=== PATIENT | male | born 1950 | race Caucasian/White ===

== ENCOUNTER 2020-06-28 07:01 | Day surgery (SDC) | payer MEDICARE ==
[2020-06-27 09:43] LABS: EOSINOPHILS # (AUTO) 0.3 X10'3 (0-0.9); HEMOGLOBIN 14.4 g/dl (14.0-17.9); MONOCYTES # (AUTO) 0.4 X10'3 (0-0.9)
[2020-06-27 09:45] LABS: BASOPHILS % (AUTO) 0.6 % (0-1); HEMATOCRIT 43.3 % (42.0-52.0); LYMPHOCYTES # (AUTO) 1.9 X10'3 (1.1-4.8); LYMPHOCYTES % (AUTO) 32.1 % (21-51); MEAN CORPUSCULAR HEMOGLOBIN 30.6 PG (27.0-31.0); MEAN CORPUSCULAR HGB CONC 33.2 g/dL (33.0-36.5); MEAN CORPUSCULAR VOLUME 92.4 FL (78-98); MONOCYTES % (AUTO) 7.6 % (2-12); NEUTROPHILS # (AUTO) 3.1 X10'3 (1.8-7.7); NEUTROPHILS % (AUTO) 53.7 % (42-75); PLATELET COUNT 228 X10'3 (140-440); RED BLOOD COUNT 4.69 X10'6 (4.70-6.10); RED CELL DISTRIBUTION WIDTH 14.5 % (11.5-14.5); WHITE BLOOD COUNT 5.8 X10'3 (4.5-11.0)
[2020-06-27 09:58] LABS: PARTIAL THROMBOPLASTIN TIME 26 SECONDS (22-32)
[2020-06-27 10:00] LABS: ALBUMIN 4.4 G/DL (3.4-5.0); ANION GAP 4 (8-16); BLOOD UREA NITROGEN 24 MG/DL (7-18); BUN/CREATININE RATIO 23.8 (5.4-32.0); CALCIUM 9.7 MG/DL (8.5-10.1); CHLORIDE 104 MMOL/L (99-107); CREATININE 1.01 MG/DL (0.60-1.10); GLUCOSE 109 MG/DL (70-104); POTASSIUM 4.1 MMOL/L (3.5-5.1); SODIUM 139 MMOL/L (135-145); eGFR 73 ML/MIN
[~2020-06-28] VITALS: Ht 180.3 cm; Wt 88.2 kg
[2020-06-28] VITALS (18 sets, daily range): BP systolic 103–160; BP diastolic 59–91
[2020-06-28] MEDS ORDERED: acetylcysteine 200 MG/ml 4ml vial PO SCH (07:21)
[2020-06-28] MEDS ORDERED: normal saline 1,000 ML IV SCH ×2 (07:25→13:45)
[2020-06-28] MEDS ORDERED: diphenhydrAMINE 25mg capsule PO PRN (07:25)
[2020-06-28] MEDS ORDERED: FENT1PAT7 TOP (07:46)
[2020-06-28] MEDS ORDERED: ATEN50TA2 PO (07:46)
[2020-06-28] MEDS ORDERED: FEXO180T94 PO (07:46)
[2020-06-28] MEDS ORDERED: FENO160T30 PO (07:46)
[2020-06-28] MEDS ORDERED: LISI10TA27 PO (07:46)
[2020-06-28] MEDS ORDERED: ASPI-1071 PO (07:46)
[2020-06-28] MEDS ORDERED: FLUT16SP11 BOTHNARES (07:46)
[2020-06-28] MEDS ORDERED: ALLO100T PO (07:46)
[2020-06-28] MEDS ORDERED: NITR0.4T48 SL (07:46)
[2020-06-28] MEDS ORDERED: ROSU20TA31 PO (07:46)
[2020-06-28] MEDS ORDERED: ESZO3TAB44 PO (07:46)
[2020-06-28] MEDS ORDERED: ESZO1TAB11 PO (07:46)
[2020-06-28] MEDS ORDERED: HYDR-3972 PO (07:46)
[2020-06-28] MEDS ORDERED: iohexol 350MG/ML 100ml bottle IV ONE ×4 (10:26→12:30)
[2020-06-28] MEDS ORDERED: midazolam 2 mg/2 ml injection ONE ×2 (10:26→12:04)
[2020-06-28] MEDS ORDERED: heparin 1,000unit/ml 10ml vial 10 ML ONE ×2 (10:26→12:47)
[2020-06-28] MEDS ORDERED: iohexol 350 MG/ML 50ML vial IV ONE (10:26)
[2020-06-28] MEDS ORDERED: LIDOcaine 1% (10mg/ml)w/preservative injection 20ml MDV ONE (10:26)
[2020-06-28] MEDS ORDERED: fentaNYL/PF 50MCG/1 ML 2ML syringe ONE (10:26)
[2020-06-28] MEDS ORDERED: nitroGLYCERIN-Tridil 50MG/D5W 250 ML IV ONE (10:26)
[2020-06-28] MEDS ORDERED: heparin 25,000 UNIT/250ml bag 250 ML IV ONE (11:29)
[2020-06-28] MEDS ORDERED: heparin 1,000 UNITS/NS 500ml 500 ML ONE (12:11)
[2020-06-28] MEDS ORDERED: clopidogrel 300mg tablet ONE (12:53)
[2020-06-28] MEDS ORDERED: heparin 25,000 UNIT/250ml bag 250 ML IV SCH (13:45)
[2020-06-28] MEDS ORDERED: cyclobenzaprine 10mg tablet PO PRN (14:20)
[2020-06-28] MEDS ORDERED: OXAZEpam 15mg capsule PO PRN (14:20)
[2020-06-28] MEDS ORDERED: HYDROcodone/acetaminophen 10/325mg tab PO PRN (14:20)
[2020-06-28] MEDS ORDERED: morphine 2 MG/ML inj. syringe IV PRN (14:20)
[2020-06-28] MEDS ORDERED: magnesium hydroxide 30ml (MOM) UD suspension PO PRN (14:20)
[2020-06-28] MEDS ORDERED: proCHLORperazine 10 MG/2 ml inj IV PRN (14:20)
--- NOTE | 2020-06-28 15:30 | NUR ---
Right groin sheath removed, pressure held for 15 minutes. No bleeding noted after pressure released. New dressing applied. CDI. Femstop applied as ordered. Pedal pulse palpable. Will continue to monitor.
--- NOTE | 2020-06-28 19:15 | NUR ---
Report given to Pratibha SHEN.
[2020-06-28] MEDS ORDERED: docusate sod 100mg capsule PO SCH (20:00)
[2020-06-29] MEDS ORDERED: clopidogrel 75mg tablet PO SCH (08:00)
== END 2020-06-28 20:40 | disposition home or self-care (01) ==
LOC: SSTAY O 07:01
PROVIDERS: ATTEND Internal Medicine Cardiovascular Disease
DX: I25.10 Atherosclerotic heart disease of native coronary artery without angina pectoris (principal); T82.855A Stenosis of coronary artery stent, initial encounter; I25.82 Chronic total occlusion of coronary artery; I10 Essential (primary) hypertension; E78.49 Other hyperlipidemia; I25.2 Old myocardial infarction; M19.90 Unspecified osteoarthritis, unspecified site; E66.3 Overweight; Z85.51 Personal history of malignant neoplasm of bladder; Z95.5 Presence of coronary angioplasty implant and graft; Z79.899 Other long term (current) drug therapy; Z90.49 Acquired absence of other specified parts of digestive tract; Z98.890 Other specified postprocedural states; Z87.891 Personal history of nicotine dependence; Y83.8 Other surgical procedures as the cause of abnormal reaction of the patient, or of later complication, without mention of misadventure at the time of the procedure; Y92.89 Other specified places as the place of occurrence of the external cause
CPT/HCPCS: 36415; 76937; 80048; 85025; 85347; 85610; 85730; 93005; 93459; 99152; 99153; C1725; C1751; C1769; C1874; C1894; C9604; J1644; J2001; J2250; J2270; J3010; J7030; Q0163; Q9967; A4620; A6258; J3490

== ENCOUNTER 2021-10-17 06:09 | Day surgery (SDC) | payer MEDICARE ==
[2021-10-16 13:12] LABS: BASOPHILS % (AUTO) 0.8 % (0-1); EOSINOPHILS # (AUTO) 0.4 X10'3 (0-0.9); EOSINOPHILS % (AUTO) 5.7 % (0-6); HEMOGLOBIN 14.2 g/dl (14.0-17.9); LYMPHOCYTES # (AUTO) 1.9 X10'3 (1.1-4.8); LYMPHOCYTES % (AUTO) 30.9 % (21-51); MEAN CORPUSCULAR HEMOGLOBIN 29.4 PG (27.0-31.0); MEAN CORPUSCULAR VOLUME 89.2 FL (78-98); MEAN PLATELET VOLUME 8.4 FL (7.4-10.4); MONOCYTES # (AUTO) 0.6 X10'3 (0-0.9); MONOCYTES % (AUTO) 8.8 % (2-12); NEUTROPHILS # (AUTO) 3.4 X10'3 (1.8-7.7); NEUTROPHILS % (AUTO) 53.8 % (42-75); PLATELET COUNT 242 X10'3 (140-440); RED BLOOD COUNT 4.82 X10'6 (4.70-6.10); WHITE BLOOD COUNT 6.2 X10'3 (4.5-11.0)
[2021-10-16 13:20] LABS: ALBUMIN 4.2 G/DL (3.4-5.0); BLOOD UREA NITROGEN 20 MG/DL (7-18); BUN/CREATININE RATIO 21.5 (5.4-32.0); CALCIUM 8.8 MG/DL (8.5-10.1); CHLORIDE 103 MMOL/L (99-107); CREATININE 0.93 MG/DL (0.60-1.10); GLUCOSE 94 MG/DL (70-104); SODIUM 139 MMOL/L (135-145); eGFR 80 ML/MIN
[2021-10-16 13:21] LABS: ANION GAP 7 (8-16); TOTAL CARBON DIOXIDE 29.4 MMOL/L (24-32)
[2021-10-16 13:24] LABS: APTT 28 SECONDS (22-32)
[2021-10-17] VITALS (13 sets, daily range): BP systolic 122–158; BP diastolic 71–89
[~2021-10-17] VITALS: Ht 180.3 cm; Wt 86.9 kg
[~2021-10-17 06:09] MED LIST: ALLO100T PO; ASPI-1071 PO; ATEN50TA2 PO; ESZO1TAB11 PO; ESZO3TAB44 PO; FENO160T30 PO; FENT1PAT7 TOP; FEXO180T94 PO; FLUT16SP11 BOTHNARES; HYDR-3972 PO; LISI10TA27 PO; NITR0.4T48 SL; ROSU20TA31 PO
[2021-10-17] MEDS ORDERED: diphenhydrAMINE 25mg capsule PO PRN (06:30)
[2021-10-17] MEDS ORDERED: normal saline 1,000 ML IV SCH (06:30)
[2021-10-17] MEDS ORDERED: LIDOcaine/PRILOcaine 5gm cream TP ONE (06:30)
[2021-10-17] MEDS ORDERED: acetylcysteine 200 MG/ml 4ml vial PO PRN (06:35)
[2021-10-17] MEDS ORDERED: CLOP75TA34 PO (06:43)
[2021-10-17] MEDS ORDERED: METO-411 PO (06:43)
[2021-10-17] MEDS ORDERED: FLO0.4C PO (06:43)
[2021-10-17] MEDS ORDERED: FEXO-271 PO (06:45)
[2021-10-17] MEDS ORDERED: UBID100C16 PO (06:45)
[2021-10-17] MEDS ORDERED: nitroGLYCERIN-Tridil 50MG/D5W 250 ML IV ONE (07:32)
[2021-10-17] MEDS ORDERED: midazolam 1 mg/ML 2ml injection ONE ×2 (07:33→09:09)
[2021-10-17] MEDS ORDERED: heparin 1,000unit/ml 10ml vial 10 ML ONE (07:33)
[2021-10-17] MEDS ORDERED: LIDOcaine 1% 30ml preserv. free vial ONE (07:33)
[2021-10-17] MEDS ORDERED: fentaNYL/PF 50MCG/1 ML 2ML syringe ONE (07:33)
[2021-10-17] MEDS ORDERED: iohexol 350MG/ML 100ml bottle IV ONE ×3 (07:33→09:44)
[2021-10-17] MEDS ORDERED: verapamil 2.5 mg/ml inj IV ONE (07:39)
[2021-10-17] MEDS ORDERED: heparin 25,000 UNIT/250ml bag 250 ML IV ONE (09:05)
[2021-10-17] MEDS ORDERED: clopidogrel 300mg tablet ONE (09:34)
[2021-10-17] MEDS ORDERED: ticagrelor 90mg tablet ONE (09:42)
[2021-10-17] MEDS ORDERED: HYDROcodone/acetaminophen 10/325mg tab PO PRN ×2 (10:40→12:45)
[2021-10-17] MEDS ORDERED: HYDROcodone/acetaminophen 5mg/325mg tablet PO PRN (10:40)
--- NOTE | 2021-10-17 12:28 | NUR ---
Contacted . Pt complaint of SOB. Pt states he has had this reaction when taking Brilinta. New orders given and faxed to pharmacy. Pt understands the Brilinta has been DC'd and the verbalized understanding to take Effient in replacement for Brilinta. Pt states he will admitting supervisor medication from pharmacy.
--- NOTE | 2021-10-17 13:30 | NUR ---
Pt eating lunch tray. Sitting up in bed. 250ml oral fluid intake. Pt has been up to the bathroom x3. Fluids infusing as ordered.
--- NOTE | 2021-10-17 15:20 | NUR ---
Educated patient extensively on necessity of taking Effient. Explained that medication needs to be picked up at pharmacy prior to discharge. Pt verbalized understanding. Pt reports concerns in continuing Effient due to risk of stroke. Pt states he will keep in contact with Dr. Flores. Pt verbalized understanding the importance of taking his new medication and the reason for taking the medication, "in order to keep the stent open". Will continue to monitor.
--- NOTE | 2021-10-17 17:30 | NUR ---
Pt's is at bedside with new prescriptions. Pt verbalized understanding of taking Effient daily. Pt states he will call Dr. Flores, "if I decided to not take it". Pt reported concerns of increased risk of stroke with taking new medication. States he has been taking Plavix successfully for "years". Re-educated patient on the importance of him to continue taking the medication and to call MD prior to stopping any medication.
== END 2021-10-17 18:14 | disposition home or self-care (01) ==
LOC: SSTAY O 06:09
PROVIDERS: ATTEND Internal Medicine Cardiovascular Disease
DX: R94.39 Abnormal result of other cardiovascular function study (principal); I25.810 Atherosclerosis of coronary artery bypass graft(s) without angina pectoris; I10 Essential (primary) hypertension; I25.2 Old myocardial infarction; E78.49 Other hyperlipidemia; E66.3 Overweight; Z68.26 Body mass index [BMI] 26.0-26.9, adult; M19.90 Unspecified osteoarthritis, unspecified site; Z85.51 Personal history of malignant neoplasm of bladder; Z95.5 Presence of coronary angioplasty implant and graft; Z90.49 Acquired absence of other specified parts of digestive tract; Z98.890 Other specified postprocedural states; Z87.891 Personal history of nicotine dependence; Z88.8 Allergy status to other drugs, medicaments and biological substances; Z79.899 Other long term (current) drug therapy; Z79.01 Long term (current) use of anticoagulants
CPT/HCPCS: 36415; 76937; 80048; 85025; 85347; 85610; 85730; 93005; 93459; 93567; 99152; 99153; A6258; C1725; C1751; C1769; C1874; C1894; C9604; J1644; J2250; J3010; J3490; J7030; Q0163; Q9967; A4615; A4620; A6402

== ENCOUNTER 2022-12-04 06:05 | Day surgery (SDC) | payer MEDICARE ==
[2022-12-03 08:59] LABS: BASOPHILS % (AUTO) 0.7 % (0-1); EOSINOPHILS # (AUTO) 0.3 X10'3 (0-0.9); EOSINOPHILS % (AUTO) 4.5 % (0-6); HEMATOCRIT 43.9 % (42.0-52.0); HEMOGLOBIN 14.5 g/dl (14.0-17.9); LYMPHOCYTES # (AUTO) 1.8 X10'3 (1.1-4.8); LYMPHOCYTES % (AUTO) 26.8 % (21-51); MEAN CORPUSCULAR HEMOGLOBIN 30.4 PG (27.0-31.0); MEAN CORPUSCULAR VOLUME 92.2 FL (78-98); MEAN PLATELET VOLUME 8.3 FL (7.4-10.4); MONOCYTES # (AUTO) 0.6 X10'3 (0-0.9); MONOCYTES % (AUTO) 8.7 % (2-12); NEUTROPHILS # (AUTO) 3.9 X10'3 (1.8-7.7); NEUTROPHILS % (AUTO) 59.3 % (42-75); PLATELET COUNT 222 X10'3 (140-440); RED BLOOD COUNT 4.76 X10'6 (4.70-6.10); RED CELL DISTRIBUTION WIDTH 14.6 % (11.5-14.5); WHITE BLOOD COUNT 6.6 X10'3 (4.5-11.0)
[2022-12-03 09:08] LABS: ALBUMIN 4.3 G/DL (3.4-5.0); ANION GAP 3 (8-16); BLOOD UREA NITROGEN 29 MG/DL (7-18); BUN/CREATININE RATIO 24.8 (10.0-20.0); CALCIUM 9.3 MG/DL (8.5-10.1); CHLORIDE 103 MMOL/L (99-107); CREATININE 1.17 MG/DL (0.60-1.10); GLUCOSE 111 MG/DL (70-104); POTASSIUM 4.2 MMOL/L (3.5-5.1); SODIUM 137 MMOL/L (135-145); TOTAL CARBON DIOXIDE 30.6 MMOL/L (24-32); eGFR 61 ML/MIN
[2022-12-03 09:10] LABS: APTT 28 SECONDS (22-32); INR 1.1 INR; PROTHROMBIN TIME 11.4 SECONDS (9.0-12.0)
[2022-12-04] VITALS (12 sets, daily range): BP systolic 95–127; BP diastolic 57–86; PULSE 57–67; RESP 12–18; TEMP 98.3; O2SAT 93–97
[~2022-12-04] VITALS: Ht 180.3 cm; Wt 85.9 kg
[~2022-12-04 06:05] MED LIST changes: +CLOP75TA34 PO; -ESZO3TAB44 PO; +FEXO-271 PO; +FLO0.4C PO; +METO-411 PO; -ROSU20TA31 PO; +ROSU20TA73 PO; +UBID100C16 PO
[2022-12-04] MEDS ORDERED: diphenhydrAMINE 25mg capsule PO PRN (06:20)
[2022-12-04] MEDS ORDERED: normal saline 1,000 ML IV SCH (06:20)
[2022-12-04] MEDS ORDERED: LORazepam 0.5 MG tablet PO PRN (06:20)
[2022-12-04] MEDS ORDERED: acetylcysteine 200 MG/ml 4ml vial PO PRN (06:20)
[2022-12-04] MEDS ORDERED: sodium bicarbonate 1meq/ml syr 150 ML in dextrose 5%-water 1,000 ML IV SCH (06:25)
[2022-12-04] MEDS ORDERED: LISI1TAB51 PO (06:42)
[2022-12-04] MEDS ORDERED: NITR1PAT68 TD (06:42)
[2022-12-04] MEDS ORDERED: ASPI81TA52 PO (06:42)
[2022-12-04] MEDS ORDERED: ESZO3TAB44 PO (06:42)
[2022-12-04] MEDS ORDERED: midazolam 1 mg/ML 2ml injection ONE ×2 (07:27→08:31)
[2022-12-04] MEDS ORDERED: nitroGLYCERIN-Tridil 50MG/D5W 250 ML IV ONE (07:27)
[2022-12-04] MEDS ORDERED: verapamil 2.5 mg/ml inj IV ONE (07:27)
[2022-12-04] MEDS ORDERED: LIDOcaine 1% 30ml preserv. free vial ONE (07:27)
[2022-12-04] MEDS ORDERED: heparin 1,000unit/ml 10ml vial 10 ML ONE (07:28)
[2022-12-04] MEDS ORDERED: iohexol 350MG/ML 100ml bottle IV ONE ×2 (07:28→09:07)
[2022-12-04] MEDS ORDERED: fentaNYL/PF 50MCG/1 ML 2ML syringe ONE (07:28)
[2022-12-04] MEDS ORDERED: heparin 1,000 UNITS/NS 500ml 500 ML ONE (08:53)
[2022-12-04] MEDS ORDERED: iohexol 350 MG/ML 50ML vial IV ONE (09:06)
[2022-12-04] MEDS ORDERED: pneumococcal 23-VAL P-sac vacc 25 mcg/0.5ml vial IMVAC ONE (10:00)
[2022-12-04] MEDS ORDERED: sodium bicarbonate (8.4%) inj. 150 MEQ in dextrose 5%-water 1,000 ML IV SCH (10:05)
[2022-12-04] MEDS ORDERED: HYDROcodone/acetaminophen 10/325mg tab PO PRN (10:05)
[2022-12-04] MEDS ORDERED: HYDROcodone/acetaminophen 5mg/325mg tablet PO PRN (10:05)
[2022-12-04] MEDS: morphine 2 MG/ML inj. syringe IV PRN ×2 (10:31→14:52)
== END 2022-12-04 15:50 | disposition home or self-care (01) ==
LOC: SSTAY O 06:05
PROVIDERS: ATTEND Internal Medicine Cardiovascular Disease
DX: T82.855A Stenosis of coronary artery stent, initial encounter (principal); I25.810 Atherosclerosis of coronary artery bypass graft(s) without angina pectoris; I10 Essential (primary) hypertension; I25.2 Old myocardial infarction; E66.3 Overweight; Z68.26 Body mass index [BMI] 26.0-26.9, adult; E78.5 Hyperlipidemia, unspecified; Z85.51 Personal history of malignant neoplasm of bladder; Z79.01 Long term (current) use of anticoagulants; Z79.899 Other long term (current) drug therapy; Z90.49 Acquired absence of other specified parts of digestive tract; Z98.890 Other specified postprocedural states; Z87.891 Personal history of nicotine dependence; Z72.89 Other problems related to lifestyle; Z88.8 Allergy status to other drugs, medicaments and biological substances; Z23 Encounter for immunization; Y84.0 Cardiac catheterization as the cause of abnormal reaction of the patient, or of later complication, without mention of misadventure at the time of the procedure; Y92.89 Other specified places as the place of occurrence of the external cause
CPT/HCPCS: 36415; 76937; 80048; 85025; 85610; 85730; 90732; 93005; 93459; 99152; 99153; G0009; J1644; J2250; J2270; J3010; J3490; J7030; J7070; Q0163; Q9967; A6258; A6449; C1725; C1751; C1769; C9607

== ENCOUNTER 2023-11-14 10:29 | Day surgery (SDC) | payer MEDICARE, OTHER ==
[2023-11-13 10:28] LABS: BASOPHILS # (AUTO) 0.1 X10'3 (0-0.2); BASOPHILS % (AUTO) 0.8 % (0-1); EOSINOPHILS # (AUTO) 0.2 X10'3 (0-0.9); EOSINOPHILS % (AUTO) 2.4 % (0-6); HEMATOCRIT 43.1 % (42.0-52.0); HEMOGLOBIN 14.2 g/dl (14.0-17.9); LYMPHOCYTES # (AUTO) 2.2 X10'3 (1.1-4.8); LYMPHOCYTES % (AUTO) 32.2 % (21-51); MEAN CORPUSCULAR HGB CONC 32.9 g/dL (33.0-36.5); MEAN CORPUSCULAR VOLUME 91.2 FL (78-98); MEAN PLATELET VOLUME 8.1 FL (7.4-10.4); MONOCYTES # (AUTO) 0.6 X10'3 (0-0.9); MONOCYTES % (AUTO) 9.4 % (2-12); NEUTROPHILS # (AUTO) 3.8 X10'3 (1.8-7.7); NEUTROPHILS % (AUTO) 55.2 % (42-75); PLATELET COUNT 411 X10'3 (140-440); RED BLOOD COUNT 4.73 X10'6 (4.70-6.10); RED CELL DISTRIBUTION WIDTH 15.2 % (11.5-14.5); WHITE BLOOD COUNT 6.9 X10'3 (4.5-11.0)
[2023-11-13 10:48] LABS: ALBUMIN 3.3 G/DL (3.4-5.0); ANION GAP 8 (8-16); BLOOD UREA NITROGEN 23 MG/DL (7-18); BUN/CREATININE RATIO 21.3 (10.0-20.0); CALCIUM 9.6 MG/DL (8.5-10.1); CHLORIDE 100 MMOL/L (99-107); CREATININE 1.08 MG/DL (0.60-1.10); GLUCOSE 101 MG/DL (70-104); POTASSIUM 4.4 MMOL/L (3.5-5.1); SODIUM 136 MMOL/L (135-145); TOTAL CARBON DIOXIDE 28.3 MMOL/L (24-32); eGFR 67 ML/MIN
[~2023-11-14] VITALS: Ht 180.3 cm; Wt 81.0 kg
[2023-11-14] VITALS (12 sets, daily range): BP systolic 92–119; BP diastolic 56–85; PULSE 58–79; RESP 14–20; TEMP 98.6; O2SAT 94–98
[~2023-11-14 10:29] MED LIST changes: -ASPI-1071 PO; +ASPI81TA52 PO; -ATEN50TA2 PO; -ESZO1TAB11 PO; +ESZO3TAB44 PO; -FEXO180T94 PO; -LISI10TA27 PO; +LISI1TAB51 PO; +NITR1PAT68 TD
[2023-11-14] MEDS ORDERED: IPRA5POW (11:06)
[2023-11-14] MEDS ORDERED: MULT-1085 PO (11:06)
[2023-11-14] MEDS ORDERED: heparin 1,000unit/ml 10ml vial 10 ML ONE (11:30)
[2023-11-14] MEDS ORDERED: nitroGLYCERIN 500mcg/5mL D5W 5 ML IV ONE (11:30)
[2023-11-14] MEDS ORDERED: midazolam 1 mg/ML 2ml injection ONE ×2 (11:30→12:06)
[2023-11-14] MEDS ORDERED: fentaNYL/PF 50MCG/1 ML 2ML syringe ONE (11:30)
[2023-11-14] MEDS ORDERED: iohexol 350 MG/ML 50ML vial IV ONE (11:30)
[2023-11-14] MEDS ORDERED: iohexol 350MG/ML 100ml bottle IV ONE ×2 (11:30→12:47)
[2023-11-14] MEDS: LORazepam 0.5 MG tablet PO PRN (11:34)
[2023-11-14] MEDS: diphenhydrAMINE 25mg capsule PO PRN (11:34)
[2023-11-14] MEDS: normal saline 1,000 ML IV SCH (11:35)
[2023-11-14 11:48] LABS: INR 1.1 INR; PROTHROMBIN TIME 11.6 SECONDS (9.0-12.0)
[2023-11-14] MEDS ORDERED: LIDOcaine 1% 30ml preserv. free vial ONE (11:54)
[2023-11-14] MEDS ORDERED: HYDROmorphone 1 mg/ml syringe ONE (12:12)
[2023-11-14] MEDS ORDERED: normal saline 1,000 ML IV ONE (13:40)
[2023-11-14] MEDS ORDERED: HYDROcodone/acetaminophen 5mg/325mg tablet PO PRN (13:45)
[2023-11-14] MEDS: HYDROcodone/acetaminophen 10/325mg tab PO PRN (16:12)
[2023-11-14] MEDS ORDERED: ondansetron/PF 4mg/2ml inj ONE (16:19)
== END 2023-11-14 19:00 | disposition home or self-care (01) ==
LOC: SSTAY O 10:29
PROVIDERS: ATTEND Internal Medicine Cardiovascular Disease
DX: R94.39 Abnormal result of other cardiovascular function study (principal); I25.10 Atherosclerotic heart disease of native coronary artery without angina pectoris; I10 Essential (primary) hypertension; E66.3 Overweight; E78.5 Hyperlipidemia, unspecified; I25.2 Old myocardial infarction; Z79.891 Long term (current) use of opiate analgesic; Z79.899 Other long term (current) drug therapy; Z85.51 Personal history of malignant neoplasm of bladder; Z90.49 Acquired absence of other specified parts of digestive tract; Z95.1 Presence of aortocoronary bypass graft; Z95.5 Presence of coronary angioplasty implant and graft; Z98.890 Other specified postprocedural states; Z68.24 Body mass index [BMI] 24.0-24.9, adult; Z88.8 Allergy status to other drugs, medicaments and biological substances
CPT/HCPCS: 36415; 76937; 80048; 85025; 85610; 92937; 93005; 93459; 99152; 99153; A6258; C1725; C1751; C1760; C1769; J1644; J2001; J2250; J2405; J3010; J3490; J7030; Q0163; Q9967; Z7610; C9607; J1170

== ENCOUNTER 2024-05-13 06:30 | Outpatient (CLI) | payer MEDICARE, OTHER ==
[~2024-05-13 06:30] MED LIST changes: -CLOP75TA34 PO; -FLO0.4C PO; -FLUT16SP11 BOTHNARES; +IPRA5POW; +MULT-1085 PO; -NITR0.4T48 SL; -ROSU20TA73 PO; +ROSU20TA98 PO
== END 2024-05-13 23:59 | disposition home or self-care (01) ==
LOC: MRI02 06:30
PROVIDERS: ATTEND Family Medicine
DX: M19.031 Primary osteoarthritis, right wrist (principal); M65.88 Other synovitis and tenosynovitis, other site; M24.231 Disorder of ligament, right wrist; S63.591S Other specified sprain of right wrist, sequela; X58.XXXS Exposure to other specified factors, sequela
CPT/HCPCS: 73221